=== PATIENT | female | born 1995 | race Caucasian/White ===

== ENCOUNTER 2022-06-26 20:27 | Emergency (ER) | payer MEDICAID ==
[~2022-06-26] VITALS: Ht 160 cm; Wt 56.8 kg
[2022-06-26 20:53] VITALS: BP 122/63
== END 2022-06-26 21:22 ==
LOC: ER 20:28
DX: Z04.1 Encounter for examination and observation following transport accident (principal); Z72.89 Other problems related to lifestyle
CPT/HCPCS: 99283